=== PATIENT | male | born 1970 ===

== ENCOUNTER → 2021-02-07 09:16 | Outpatient (BNVA) | payer OTHER, SELFPAY | PROVIDERS: PCP Internal Medicine; Visit Provider Internal Medicine | DX: M47.817 Spondylosis without myelopathy or radiculopathy, lumbosacral region (principal) | CPT/HCPCS: 99202 ==

== ENCOUNTER 2021-02-26 06:07 | Outpatient (REF) | payer OTHER, SELFPAY ==
--- NOTE | ~2021-02-26 | FL_ITS ---
EXAMINATION: XR FLUOROSCOPY WITH IMAGES CLINICAL INFORMATION: Spondylosis COMPARISON: None. TECHNIQUE: Fluoroscopy performed by Jose D. Fluoroscopy time: 0.3 minutes DAP: 1.14 Gycm2 Images: 2 FINDINGS: Images demonstrate a spinal needle projecting adjacent to the pedicles of L4, L5 and S1,, with adjacent contrast FL/FL guidance in treatment room IMPRESSION: Intraoperative fluoroscopy provided as above. Please see operative report.
== END 2021-02-26 06:08 | disposition home or self-care (01) ==
LOC: HO.RADIR 06:07
PROVIDERS: Visit Provider Internal Medicine
DX: M47.817 Spondylosis without myelopathy or radiculopathy, lumbosacral region (principal); M54.50 Low back pain, unspecified
CPT/HCPCS: 64493; 64494; Q9967

== ENCOUNTER → 2021-03-10 09:23 | Outpatient (BNVA) | payer OTHER, SELFPAY | PROVIDERS: PCP Internal Medicine; Visit Provider Internal Medicine | DX: M47.817 Spondylosis without myelopathy or radiculopathy, lumbosacral region (principal); M54.16 Radiculopathy, lumbar region | CPT/HCPCS: 99212 ==